=== PATIENT | female | born 1965 | race Caucasian/White ===

== ENCOUNTER 2022-11-01 12:45 | Outpatient (RCR) | payer OTHER, SELFPAY ==
--- NOTE | 2022-10-02 15:32 | PTOPEVAL1 ---
Assessment and note entered by Jill Figueroa DPT Evaluation Information Assessment Status Evaluation Subjective Information Pt reports pain for 2 years. I can't do it anymore . Started with knee pain. Has had 2 shots in her knee, 1 in her hip. States that Dr. Guerra thinks the issue is more coming from the hip. Highest pain 10/10 and lowest 1-2/10. Pt runs a [employer] and has a lot of difficulty with standing and walking. Pain when standing after sitting for a long time. Notices swelling when on her feet a lot. Difficulty with stairs, more with ascent than descent. Has had difficulty helping to care for her 2 year old grandchild. Pain starts in her lateral hip and seems to wrap around to medial knee. Takes Aleve and Tylenol regularly. Has tried other things for inflammation such as tumeric. Returns to [place] 11/26/22. Previously was able to work and do other activities with much less pain and limitation. Reported Pain Level Pain Score 5: Self Report Assessment PT Clinical Summary The patient is presenting to skilled therapy with right hip and knee pain and a diagnosis of OA. She presents with decreased range of motion, soft tissue impairments, decreased balance and gait impairments which are contributing to her pain and difficulty with standing and walking activities like while at work. She will benefit from therapy to address these impairments and safely return to [facility]. Plan of Care Interventions Electrical Stimulation,Gait Training,Hot Pack/Cold Pack,Manual Therapy,Neuro Re-education,Patient/ Caregiver Education,Therapeutic Activities, Therapeutic Exercise,Self-Care/Home Management PT Services Indicated Yes Treatment Frequency and 2 times a week for 4 weeks Duration These treatments will address the objective and functional deficits as defined above. The patient will be advanced safely and appropriately in order for the patient to progress towards his/her prior level of function. Additional exercises will be introduced and as well as a comprehensive home exercise program upon discharge, if needed, ?to ensure carryover of functional gains achieved in the clinic. This treatment plan has been reviewed and agreement upon by the patient.
--- NOTE | 2022-11-01 15:37 | PTOPPROG ---
Assessment and note entered by Mary Collazo, PT Assessment Status Progress Report Subjective Information Cont to have swelling in right knee lots . Feels range has improved not greatly but improved. Is still frustrated, wants to know why pelvis keeps going out. Some days sees improvement in pain, other days is still out of this world Still taking Tumeric, Aleve, and Tylenol. Just had shot in her knee 09/25/22 and 2 years ago since hip and other knee shot. Pt has been working 7 days a week, 12-16 hours standing on her feet at [employer]. Assessment PT Clinical Summary Pt presents with significantly reduced right hip mobility, likely hypermobile pelvic mobility, pain in hip and right knee as well. Has a job in which she is standing most of a 12-16 hour shift, 7 days a week. Significant crepitus with ROM testing as well. Pt feels her hip mobility may be improved overall but cont to have pain. Discussed with patient orthopeadic referral, and continuation of therapy for aggressive ROM hopefully with anti-inflammatory joint treatment. Plan of Care Interventions Electrical Stimulation,Gait Training,Hot Pack/Cold Pack,Manual Therapy,Neuro Re-education,Patient/ Caregiver Educati,Therapeutic Activities, Therapeutic Exercise,Self-Care/Home Management, Ultrasound PT Services Indicated Yes Treatment Frequency and Continue therapy 2x weekly x 4 weeks when pt is Duration able to return after ortho consult. These treatments will address the objective and functional deficits as defined above. The patient will be advanced safely and appropriately in order for the patient to progress towards his/her prior level of function. Additional exercises will be introduced and as well as a comprehensive home exercise program upon discharge, if needed, ?to ensure carryover of functional gains achieved in the clinic. This treatment plan has been reviewed and agreement upon by the patient.
--- NOTE | 2022-12-25 15:06 | PTOPDC ---
Assessment and note entered by Mary Collazo, PT Evaluation Information Assessment Status Discharge - Pt Not Present Subjective Information Cont to have swelling in right knee lots . Feels range has improved not greatly but improved. Is still frustrated, wants to know why pelvis keeps going out. Some days sees improvement in pain, other days is still out of this world Still taking Tumeric, Aleve, and Tylenol. Just had shot in her knee 09/25/22 and 2 years ago since hip and other knee shot. Pt has been working 7 days a week, 12-16 hours standing on her feet at [employer]. Assessment PT Clinical Summary Pt was advised to seek ortho consultation after REevaluation on 11/01/22 then return to therapy. Pt has not returned since this visit. Thus we will discharge this plan of care. Should she be able to return to therapy, we would be happy to see her with an updated prescription.
== END 2022-12-31 11:50 | disposition home or self-care (01) ==
LOC: ANHHIPT 12:45
PROVIDERS: PCP Family Medicine; Visit Provider Family Medicine
DX: M19.90 Unspecified osteoarthritis, unspecified site (principal); M25.561 Pain in right knee; M25.551 Pain in right hip
CPT/HCPCS: 97014; 97110; 97112; 97140; 97161; G0283

== ENCOUNTER 2022-12-13 13:23 | Outpatient (CLI) | payer OTHER, SELFPAY ==
[2022-12-13 13:40] LABS: Hematocrit 39.8 % (37.0-47.0); Hemoglobin 13.5 g/dL (12.0-15.0)
--- NOTE | 2022-12-13 13:47 | ECG_ITS ---
Measurements Intervals [place] Rate: 69 P: 35 SC: 162 QRS: 56 QRSD: 97 T: 47 QT: 384 QTc: 412 Interpretive Statements SINUS RHYTHM DELAYED PRECORDIAL R/S TRANSITION BASELINE WANDER- II, III, AVR, AVL, AVF, V3 BORDERLINE ECG NO PREVIOUS ECG AVAILABLE FOR COMPARISON Electronically Signed On 12-13-2022 14:06:01 CDT by Sincere Cartagena D.O.
[2022-12-13 13:51] LABS: Albumin Level 4.8 g/dL (3.5-5.1); Estimated Glomerular Filt Rate > 60; Glucose 93 mg/dL (65-110)
[2022-12-13 13:54] LABS: Hemoglobin A1C 4.8 % (<5.7); Urine Cotinine NEGATIVE
== END 2022-12-13 13:24 | disposition home or self-care (01) ==
PROVIDERS: PCP Family Medicine; Visit Provider Orthopaedic Surgery
DX: M16.11 Unilateral primary osteoarthritis, right hip (principal)
CPT/HCPCS: 80307; 82040; 82565; 82947; 83036; 85014; 85018; 93005

== ENCOUNTER 2023-02-04 11:48 | Outpatient (CLI) | payer OTHER, SELFPAY ==
[2023-02-04 13:10] LABS: Basophils Percent Auto 0.3 % (0.2-1.2); Eosinophils Percent Auto 0.5 % (0-4.4); Hematocrit 41.6 % (37.0-47.0); Hemoglobin 13.9 g/dL (12.0-15.0); Immature Granulocyte Absolute 0.01 K/mm3 (0.00-0.031); Immature Granulocyte Percent A 0.2 % (0-0.5); Lymphocytes Absolute Auto 1.98 K/mm3 (0.9-3.2); Lymphocytes Percent Auto 30.5 % (18.3-44.2); Mean Corpuscular HGB Conc 33.4 g/dl (32-36); Mean Corpuscular Volume 101.7 fl (80-100); Monocytes Absolute Auto 0.4 K/mm3 (0.1-0.6); Monocytes Percent Auto 6.6 % (2.6-8.5); Neutrophils Percent Auto 61.9 % (45.5-73.1); Platelet Count Result 364 k/mm3 (150-375); Red Blood Count 4.09 M/mm3 (4.2-5.4); Red Cell Distribution Width 12.6 % (11.5-14.5); White Blood Count 6.5 K/mm3 (4.5-10.0)
[2023-02-04 13:25] LABS: Albumin Level 4.7 g/dL (3.5-5.1); Estimated Glomerular Filt Rate > 60; Glucose 97 mg/dL (65-110)
[2023-02-04 13:28] LABS: Urine Cotinine NEGATIVE
== END 2023-02-04 11:49 | disposition home or self-care (01) ==
PROVIDERS: PCP Family Medicine; Visit Provider Orthopaedic Surgery
DX: M16.11 Unilateral primary osteoarthritis, right hip (principal); Z01.818 Encounter for other preprocedural examination
CPT/HCPCS: 80307; 82040; 82565; 82947; 85025; 87081

== ENCOUNTER 2023-03-05 00:17 | Day surgery (SDC) | payer OTHER, SELFPAY ==
[2023-02-04 12:13] VITALS: BP 139/77; PULSE 77; RESP 16; TEMP 37.1; O2SAT 98; BMI 29.9
--- NOTE | 2023-02-04 12:23 | PC.NURSE ---
Report to the Outpatient Waiting Room, entrance under the green pavilion located off [facility], at time __6:00AM on date __03/05/23 . Planned Procedure Time: __7:30AM . Time changes happen often and if your time is changed the preop area will call you the afternoon before. - You and your visitor will be asked to self-screen and do not enter if you have any COVID symptoms. - A mask is optional within the hospital at this time. Patients may have clear liquids (water, carbonated beverages, clear teas, apple juice) until 3 hours prior to surgery with a maximum of 20 ounces. - No food from midnight until time of surgery Take the following medications with a SIP of water the morning of surgery: __TRAMADOL NEEDED DO NOT STOP ANY OF YOUR OTHER PRESCRIPTION MEDICATIONS PRIOR TO SURGERY ?EXCEPT THE FOLLOWING Medications to discontinue per physician __HOLD ALL VITAMINS/SUPPLEMENTS 3 DAYS PRE-OP PER ANESTHESIA Date to take last dose__03/01/23 Please no make-up, nail iranian, hairspray, perfume, deodorant, or body powder the day of surgery. No jewelry (including any body piercings) or valuables the day of surgery, leave them at home. Please take a shower or bath the night before, or the morning of, surgery with an antibacterial soap. Wear comfortable, loose fitting clothing. Children are encouraged to wear pajamas. - Jewelry must be removed prior to entering the operating room. Rings and piercings that are not removed may be cut off. - The hospital will not accept responsibility for valuables. - Please leave all valuables, including medications, at home the day of surgery. If you are going home after surgery, a licensed electric mule driver must drive you home. - NO public transportation without another adult if you receive anesthesia. - We recommend that an adult stay with you for 24 hours following discharge. - We also recommend that you do not drive, make important decision, drink alcoholic beverages, or take any drugs that were not prescribed by your health care provider for at least 24 hours after your discharge time. Follow any additional instructions given to you from your surgeon. If you or anyone in your household have experienced Covid symptoms in the past week, please notify your surgeon or the nurse liaison at the phone number below for possible testing. Telephone instructions given to PATIENT & HUSBAND and asked if any additional questions and then verbalized understanding. Patient advised to call surgeon office or pre surgery nurse liaison [phone] if any additional questions.
--- NOTE | 2023-03-04 16:57 | WPDANESEPPF ---
Anes - Initial Pre Proc Eval Procedure: Operation Date: 03/05/23 07:30 Proposed Procedures p Right Total Hip Arthroplasty - Judd France MD Date/Time: 03/04/23 16:57 Surgeon: Judd France MD Pre Op Diagnosis: primary OA right hip Patient Data Age: 57 Gender: F Height: 1.73 m Weight: 89.2 kg Last Vital Signs Temp 37.1 C 02/04/23 12:13 Pulse 77 02/04/23 12:13 Resp 16 02/04/23 12:13 BP 139/77 02/04/23 12:13 Pulse Ox 98 02/04/23 12:13 O2 Del Method Room Air 02/04/23 12:13 Allergies Allergy/AdvReac Type Severity Reaction Status Date / Time No Known Allergies Allergy Verified 02/04/23 12:08 Home Medications Medication Instructions Recorded Confirmed Type celecoxib 200 mg capsule 200 mg PO BID #90 caps 01/16/23 02/04/23 Rx tramadol 50 mg tablet See Rx Instructions PO BID PRN 02/01/23 02/04/23 Rx pain #60 tabs acetaminophen 500 mg tablet 1,000 mg PO TID PRN Pain 02/04/23 02/04/23 History (Acetaminophen Extra Strength) multivitamin 1 tablet PO DAILY 02/04/23 02/04/23 History omeprazole 20 mg capsule,delayed 20 mg PO DAILY 02/04/23 02/04/23 History release Patient hx anesthesia problems: none Family hx anesthesia problems: none Results Review: All pre-operative results and documents have been reviewed as part of the pre-operative evaluation. [facility] Past Medical History Medical History (Updated 03/04/23 @ 16:59 by Ulises Nava DO) Allergies Anxiety GERD (gastroesophageal reflux disease) Osteoarthritis Other plastic surgery for unacceptable cosmetic appearance Right hip pain Right knee pain Surgical History Surgical History H/O knee surgery Family History Family History Father Cancer Diabetes mellitus Hypertension Depression Heart disease Cerebrovascular accident Mother Cancer Hypertension Social History Social History Smoking status: Never smoker Alcohol intake: current Drinks per week: 3 Substance use: never Lack of Transportation: No Lack of Food: Never True Current Housing: I Have Housing Concerned About Future Housing: No Difficulty Paying Gas/Electric Bills: No Difficulty Paying for Meds: No Currently Unemployed: No Education: Don't Know Difficulty w/ Childcare or Family Care: No Living arrangements: with family Additional living arrangements comments: [facility] Occupation/Education: occupation Additional occupation/education comments: Funds Transfer [employer] Spiritual care concerns: No Agree to blood products: Yes Anes - Eval Final PreProcedure Day of Procedure 03/04/23 16:57 Patient weight: overweight Heart: regular rate and rhythm Lungs: clear to auscultation Airway: Mallampati scale class II Neurological: alert and oriented Last oral intake: >/= 8 hours ASA classification: II Emergent: no Anesthetic plan: proceed Anesthesia type and monitoring: general ETT and standard monitoring Results Review: All pre-operative results and documents have been reviewed as part of the pre-operative evaluation. Informed Consent: The patient's anesthetic plan and its attendant risks and benefits were discussed with the patient/family/POA. Questions were solicited and answers provided to the satisfaction of the patient/family/POA.
[2023-03-05] VITALS (12 sets, daily range): BP systolic 116–138; BP diastolic 51–70; PULSE 68–92; RESP 10–18; TEMP 36–37.6; O2SAT 93–100
--- NOTE | ~2023-03-05 | XR_ITS ---
EXAMINATION: XR surgery orthopedic DATE: 03/05/2023 09:49 INDICATION: Intraoperative evaluation during right total hip arthroplasty TECHNIQUE: 2 frontal views of the right hip were obtained. COMPARISON: None. FINDINGS: Intraoperative image during a right total hip arthroplasty demonstrate placement of an acetabular com ponent as well as a femoral broach which appear in near anatomic alignment. Portions of the pelvis ar e either excluded from the [id number] are obscured by a bolster. No fractures in the visualized jose m ember. Expected lucent gas at the operative bed. IMPRESSION: 1. Expected appearance during right total hip arthroplasty. Reviewed, dictated and finalized at location L.
--- NOTE | ~2023-03-05 | XR_ITS ---
EXAMINATION: XR hip RT min 2V DATE: 03/05/2023 10:40 INDICATION: Postoperative evaluation following right total hip arthroplasty TECHNIQUE: Anteroposterior and lateral views of the right hip were obtained. COMPARISON: Intraoperative radiograph dated 03/05/2023 at 9:00 AM FINDINGS: Interval completion of the right total hip arthroplasty which appears well seated in near anatomic al ignment. Acetabular component is affixed with a single screw. Expected subcutaneous gas in the postop erative bed. No fractures identified. IMPRESSION: 1. Right total hip arthroplasty, negative for postoperative purposes. Reviewed, dictated and finalized at location L.
[2023-03-05] MEDS: ACETAMINOPHEN 500 MG TABLET 1000 MG PO (07:00)
[2023-03-05] MEDS: TRANEXAMIC ACID 1,000MG/ISO100 1,000 MG/100 ML BAG 200 MG IVPB (07:00)
[2023-03-05] MEDS: LACTATED RINGERS 1,000 ML 30 ML IV CONT ×2 (07:00→10:15)
--- NOTE | 2023-03-05 07:08 | WPDHPUPDATE1 ---
History and Physical Update Update Date/Time: 03/05/23 07:08 History and Physical has been reviewed, including an updated exam of the patient. There are NO changes in the patient's condition. Risks, benefits, and alternatives have been discussed and questions answered. Patient agrees to proceed with procedure.
[2023-03-05] MEDS: ceFAZolin 2 GM/D5W 50 ML 2 GM/50 ML BAG IVPB (07:29)
[2023-03-05] MEDS: fentaNYL CITRATE INJ (*CRX) 100 MCG/2 ML VIAL 25 MCG IV PUSH ×4 (10:50→11:13)
--- NOTE | 2023-03-05 10:53 | W.PM.PROC2 ---
Procedure Note - Detailed Date of Procedure 03/05/23 Pre-op Diagnosis primary OA right hip Post-op Diagnosis Same Procedure Performed Right Total Hip Arthroplasty Surgeon Judd France MD Anesthesia General Findings Severe arthritic disease with mild dysplasia. The hip center was recreated. The acetabular component placed at 35-40 degrees. Elevated liner placed somewhat inferior. No impingement. Femur with mild increase anteversion placed in the anatomic position. Significant osteoporosis. The first 4 broaches did not require any significant impaction to them. She ended up at a size 7. Intraoperative radiographs confirmed appropriate implant position. The hip was very stable. Leg length taoist was accomplished. Description of Procedure The patient was given preoperative antibiotics. A general anesthetic was administered. The patient was carefully placed in the lateral decubitus position on the PEG board. The shoulders and hips were carefully positioned for component and leg length positioning reference. The hip was prepped and draped in the usual sterile fashion. A longitudinal incision was created over the posterior aspect of the greater trochanter. Careful dissection was brought down through the deep fascia with electrocautery. A minimally invasive optimized posterior approach to the hip was performed. The short external rotators and capsule were taken down in an L-shaped capsulotomy. The tissue was tagged for later repair using number 2 high strength suture. The femoral neck was measured and taken in situ. The femoral head was removed. The acetabulum was carefully exposed. The inferior capsule was released. The labrum was resected. The acetabulum was sequentially reamed to the intended cup size. The cup was impacted into position with excellent press-fit. Due to the osteoporosis, a single screw was placed for additional cup stability. Typical anatomic landmarks, including the bony contact points as well as the inferior transverse acetabular ligament were used to confirm cup positioning with preoperative templating. Attention was turned to the femur, which was carefully exposed. The hip was reamed and then broached sequentially. Excellent press-fit was obtained with the broach. The hip was trialed. Measurements were utilized, including the lesser trochanter as well as the center of the femoral head and the tip of the trochanter, and excellent assessment of the offset and leg lengths were confirmed. The real component was impacted into position. Trialing confirmed appropriate leg length and offset with soft tissue balancing as well apparent feel of the leg, both at the knee and the heel. Soft tissues were assessed using the the iliotibial band. Reduction of the posterior capsule and external rotators were also used as a secondary assessment. The hip was copiously irrigated with pulsatile lavage antibiotic solution periodically throughout the procedure. The real components were then assembled and reduced. The hip was stable throughout typical maneuvers, including extension, external rotation to 70 degrees, the position of sleep as well as flexion to 90 degrees with internal rotation past 45 degrees. The shake test confirmed stability without impingement. Osteophytes were removed as necessary. The short external rotators and capsule were repaired back to the posterior trochanter through drill holes. The deep fascia was repaired with running number 2 Quill suture, followed by 0 Stratafix suture and 2-0 Stratafix suture in the dermis. Steri-Strips were placed on the skin, followed by a sterile silver occlusive dressing. There were no complications. Meticulous hemostasis was maintained with the AquaMantys device. The patient was brought to the recovery room in stable condition. There were no complications. Implants The Accolade II hip stem, 132 degree size 7 , was utilized with excellent press-fit. The 52 mm Trident II fernie
--- NOTE | 2023-03-05 11:52 | ADMGEN ---
This patient, Dafne Bruner, was admitted to 2 Medical Room 255-. Patient/family oriented to hospital policies and general routines including ID bracelet, bed and alarms, visiting hours, pain management, procedures, bathroom and other care routines, personal items, smoking policy, room service/diet, and visiting hours. Information on how to activate the Rapid Response Team has been discussed. Patient/Family are encouraged to report perceived risks to care and to ask questions if they do not understand what they are told or what they should do.
[2023-03-05] MEDS: SODIUM CHLORIDE 0.9% IV 1,000 ML 125 ML IV CONT (12:31)
[2023-03-05] MEDS: oxyCODONE HCL (*CRX) 5 MG TAB IR 10 MG PO ×3 (12:38→20:27)
[2023-03-05] MEDS: ceFAZolin 1 GM/NS 50 ML 1 GM/50 ML BAG IVPB ×2 (14:53→22:28)
[2023-03-05] MEDS: CELECOXIB 200 MG CAPSULE PO (16:18)
[2023-03-05] MEDS: SENNA/DOCUSATE SODIUM TABLET 2 TAB PO (16:18)
[2023-03-05] MEDS: ASPIRIN 81 MG ENTERIC TABLET PO (16:18)
[2023-03-06] MEDS: oxyCODONE HCL (*CRX) 5 MG TAB IR 10 MG PO ×3 (00:44→09:35)
[2023-03-06 01:15] VITALS: BP 110/51; PULSE 84; RESP 20; TEMP 36.7; O2SAT 98
[2023-03-06 05:15] VITALS: BP 105/58; PULSE 91; RESP 20; TEMP 36.7; O2SAT 98
[2023-03-06 05:45] LABS: Basophils Percent Auto 0.2 % (0.2-1.2); Hematocrit 31.7 % (37.0-47.0); Hemoglobin 10.6 g/dL (12.0-15.0); Immature Granulocyte Absolute 0.03 K/mm3 (0.00-0.031); Immature Granulocyte Percent A 0.3 % (0-0.5); Lymphocytes Absolute Auto 1.52 K/mm3 (0.9-3.2); Lymphocytes Percent Auto 13.9 % (18.3-44.2); Mean Corpuscular HGB Conc 33.4 g/dl (32-36); Mean Corpuscular Volume 101.6 fl (80-100); Mean Platelet Volume 10.4 fl (7.4-10.4); Monocytes Percent Auto 9.3 % (2.6-8.5); Neutrophils Absolute Auto 8.4 K/mm3 (1.3-6.7); Neutrophils Percent Auto 76.3 % (45.5-73.1); Platelet Count Result 279 k/mm3 (150-375); Red Blood Count 3.12 M/mm3 (4.2-5.4); Red Cell Distribution Width 12.3 % (11.5-14.5)
[2023-03-06] MEDS: ceFAZolin 1 GM/NS 50 ML 1 GM/50 ML BAG IVPB (06:04)
[2023-03-06 06:05] LABS: Anion Gap 2 mmol/L (8-16); Blood Urea Nitrogen 11 mg/dL (7-17); Calcium 8.5 mg/dL (8.4-10.2); Carbon Dioxide 28 mmol/L (22-30); Chloride 102 mmol/L (98-107); Estimated CRCL calculation 89 ml/min; Estimated Glomerular Filt Rate > 60; Glucose 109 mg/dL (65-110); Potassium 3.9 mmol/L (3.4-5.0); Sodium 132 mmol/L (137-145)
[2023-03-06 08:00] VITALS: PULSE 88; RESP 19; O2SAT 95
[2023-03-06] MEDS: predniSONE 5 MG TABLET PO (08:28)
[2023-03-06] MEDS: MULTIVITAMINS THERAPEUTIC TAB (*BKC) 1 TABLET PO (08:29)
[2023-03-06] MEDS: CELECOXIB 200 MG CAPSULE PO (08:29)
[2023-03-06] MEDS: SENNA/DOCUSATE SODIUM TABLET 2 TAB PO (08:29)
[2023-03-06] MEDS: ASPIRIN 81 MG ENTERIC TABLET PO (08:29)
[2023-03-06] MEDS: PANTOPRAZOLE 40 MG TABLET PO (08:29)
[2023-03-06] MEDS: polyethylene glycoL 3350 17 GM POWD.PACK PO (08:29)
[2023-03-06 09:15] VITALS: BP 102/44; PULSE 88; RESP 19; TEMP 36.5; O2SAT 95
--- NOTE | 2023-03-06 10:25 | PCOTNOTE ---
Attempted to see Patient for A.M. OT treatment session. Patient declined due to have just working with PT and having some low blood pressures. Patient stated she still isnt feeling well and would like to have more time, requested therapist to come back later.
--- NOTE | 2023-03-06 10:57 | P.PNAN_ITS ---
Anes - Prog Note Post-Op Date/Time: 03/06/23 10:57 Cardiovascular status: normal Respiratory status: normal Airway patency: baseline Mental status: baseline Post-Op hydration status: normal Vital Signs: Last Vital Signs Temp 97.7 F 03/06/23 09:15 Pulse 88 03/06/23 09:15 Resp 19 03/06/23 09:15 BP 102/44 L 03/06/23 09:15 Pulse Ox 95 03/06/23 09:15 O2 Del Method Room Air 03/06/23 08:00 O2 Flow Rate 8 03/05/23 10:35 Pain Score (VAS): 7 I/O: Intake & Output 03/05/23 03/06/23 03/06/23 23:59 07:59 15:59 Intake Total 370 240 Balance 370 240 Laboratory Tests 03/06/23 05:31 03/06/23 05:31 03/06/23 05:31 WBC 11.0 H RBC 3.12 L Hgb 10.6 L D Hct 31.7 L MCV 101.6 H MCH 34.0 MCHC 33.4 RDW 12.3 Plt Count 279 MPV 10.4 Immature Gran % (Auto) 0.3 Neut % (Auto) 76.3 H Lymph % (Auto) 13.9 L Person % (Auto) 9.3 H Eos % (Auto) 0.0 Baso % (Auto) 0.2 Lymph # (Auto) 1.52 Person # (Auto) 1.0 H Eos # (Auto) 0.0 Baso # (Auto) 0.0 Abs Immat Gran (auto) 0.03 Absolute Neuts (auto) 8.4 H Absolute Nucleated RBC 0.0 Nucleated RBC % 0.0 Sodium 132 L Potassium 3.9 Chloride 102 Carbon Dioxide 28 Anion Gap 2 L BUN 11 Creatinine 0.70 Estim Creat Clear Calc 89 Estimated GFR > 60 Glucose 109 Calcium 8.5 Post-procedural complaints: none Patient Feedback: Patient satisfied with anesthetic care.
[2023-03-06 14:00] VITALS: BP 108/58; PULSE 84; RESP 19; TEMP 36.4; O2SAT 96
== END 2023-03-06 14:35 | disposition home or self-care (01) ==
LOC: ANHSURGERY 06:08 → ANH2MED 11:32
PROVIDERS: PCP Family Medicine; Visit Provider Orthopaedic Surgery
PROC: (CPT 27130; principal; 2023-03-05 07:30)
DX: M16.11 Unilateral primary osteoarthritis, right hip (principal); K21.9 Gastro-esophageal reflux disease without esophagitis
CPT/HCPCS: 27130; 36415; 73502; 80048; 80307; 82040; 82565; 82947; 85025; 86850; 86900; 86901; 87081; 97110; 97116; 97161; 97165; 97530; 97535; 99199; A9270; C1776; J0171; J0690; J1100; J1885; J2250; J2270; J2405; J2704; J2795; J3010; J7030; J7120; J7512